=== PATIENT | male | born 1960 | race Caucasian/White ===

== ENCOUNTER 2020-06-29 06:49 | Day surgery (SDC) | payer BC ==
[~2020-06-29] VITALS: Ht 170.2 cm; Wt 59.1 kg
[2020-06-29 07:37] LABS: BASOPHILS 0.2 % (0-2); EOSINOPHILS 4.5 % (0-7); HEMATOCRIT 43.9 % (42.0-54.0); HEMOGLOBIN 14.8 g/dL (13.5-17.5); IMMATURE GRANULOCYTES 0.5 % (0-5); LYMPHOCYTES 23.8 % (15-50); MCH 32.7 pg (26.0-34.0); MCHC 33.7 g/dL (31.0-37.0); MCV 96.9 fL (80.0-100.0); MEAN PLATELET VOLUME 9.8 fL (7.4-10.4); MONOCYTES 12.2 % (2-11); NEUTROPHILS 58.8 % (40-80); PLATELET COUNT 154 10x3/uL (130-400); RBC 4.53 10x6/uL (4.20-6.10)
[2020-06-29 08:02] LABS: APTT 27.5 SECONDS (22.8-39.4); PROTIME 13.2 SECONDS (11.6-15.0)
[2020-06-29] MEDS ORDERED: SYNTHROID125 MCG PO (08:16)
[2020-06-29] MEDS ORDERED: XANAX0.5 MG PO (08:17)
[2020-06-29] MEDS ORDERED: PAROXETINE HCL10 MG PO (08:17)
[2020-06-29 08:20] VITALS: Ht 170.2 cm; Wt 59.1 kg
[2020-06-29 09:20] LABS: CALC OSMOLALITY 272 mosm/kg (275-300); CALCIUM 8.8 mg/dL (8.5-10.1); CARBON DIOXIDE 29.5 mmol/L (21.0-32.0); CHLORIDE - SERUM 103 mmol/L (98-107); CREATININE - SERUM 0.9 mg/dL (0.6-1.3); GLUCOSE 102 mg/dL (74-106); POTASSIUM - SERUM 4.1 mmol/L (3.5-5.1); SODIUM 137 mmol/L (136-145); UREA NITROGEN 10 mg/dL (7-18); eGFR NON AFRICAN AMERICAN > 90 mL/min (90-120)
--- NOTE | 2020-06-29 10:47 | NUR ---
1025 SEE POST PROCEDURE CHECKLIST FOR VITAL SIGN TRENDS. FAMILY WITH PT. EXPLAINED KEEP HOB ELEVATED. O2 AT 2L. WATER SERVED. CALL LIGHT AT BEDSIDE. CXR IN 2 HOURS.
--- NOTE | 2020-06-29 15:32 | NUR ---
1415 ARABELLA, RADIOLOGY NURSE ROUNDS ON PT. OKAYS RELEASE.
== END 2020-06-29 15:00 | disposition home or self-care (01) ==
LOC: D.SP 06:49 → D.CT 09:00 → D.SP 15:00
PROVIDERS: Radiology Diagnostic Radiology; ATTEND Family Medicine
DX: R91.8 Other nonspecific abnormal finding of lung field (principal); Z68.21 Body mass index [BMI] 21.0-21.9, adult; J39.9 Disease of upper respiratory tract, unspecified; E03.9 Hypothyroidism, unspecified; D38.1 Neoplasm of uncertain behavior of trachea, bronchus and lung

== ENCOUNTER → 2020-08-09 10:07 | Outpatient (CLI) | payer BC ==
[2020-06-29 08:20] VITALS: BMI 20.4
[~2020-08-09 10:07] MED LIST: PAROXETINE HCL10 MG PO; SYNTHROID125 MCG PO; XANAX0.5 MG PO
== END | disposition home or self-care (01) ==
LOC: D.LAB 10:07
PROVIDERS: ATTEND Internal Medicine Pulmonary Disease
DX: R91.8 Other nonspecific abnormal finding of lung field (principal); Z11.59 Encounter for screening for other viral diseases

== ENCOUNTER → 2020-08-12 08:56 | Outpatient (CLI) | payer BC ==
[2020-06-29 08:20] VITALS: BMI 20.4
[2020-08-12 11:09] LABS: BASOPHILS 0.1 % (0-2); EOSINOPHILS 2.2 % (0-7); HEMATOCRIT 47.3 % (42.0-54.0); HEMOGLOBIN 16.1 g/dL (13.5-17.5); IMMATURE GRANULOCYTES 0.3 % (0-5); LYMPHOCYTES 19.6 % (15-50); MCH 33.1 pg (26.0-34.0); MCV 97.1 fL (80.0-100.0); MEAN PLATELET VOLUME 9.4 fL (7.4-10.4); MONOCYTES 11.2 % (2-11); NEUTROPHILS 66.6 % (40-80); PLATELET COUNT 150 10x3/uL (130-400); RBC 4.87 10x6/uL (4.20-6.10); RDW 12.4 % (11.5-14.5); WBC 7.9 10x3/uL (4.8-10.8)
[2020-08-15 10:08] LABS: ANA REFLEX - DIRECT Negative (Negative)
== END | disposition home or self-care (01) ==
LOC: D.RT 08-10 10:00 → D.LAB 08-15 08:00 → D.RT 08-15 11:00
PROVIDERS: ATTEND Internal Medicine Pulmonary Disease
DX: R91.8 Other nonspecific abnormal finding of lung field (principal); Z11.59 Encounter for screening for other viral diseases; R93.89 Abnormal findings on diagnostic imaging of other specified body structures